=== PATIENT | female | born 1945 | race Caucasian/White ===

== ENCOUNTER 2016-09-27 13:31 | Emergency (ER) | payer OTHER ==
[~2016-09-27] VITALS: Ht 157.5 cm; Wt 45.4 kg
[2016-09-27 13:35] VITALS: BP 110/74
[2016-09-27] MEDS ORDERED: ALBUTEROL SULFATE/IPRATROPIU 3 ML SOL IH ONE (13:45)
[2016-09-27] MEDS ORDERED: predniSONE 20 MG TAB PO ONE (13:45)
[2016-09-27] MEDS ORDERED: ALBUTEROL 0.083% 2.5 MG/3 ML NEBU INH ONE (13:45)
[2016-09-27 14:14] LABS: HEMATOCRIT 43.8 % (36-48); MEAN CORPUSCULAR HGB CONC 33 g/dL (33-37); PLATELET COUNT (AUTO) 191 K/uL (140-450); RED CELL DISTRIBUTION WIDTH 13.2 % (11.6-13.7)
[2016-09-27 14:18] LABS: HEMOGLOBIN 14.4 g/dL (12.0-16.0); MEAN CORPUSCULAR HEMOGLOBIN 28 pg (27-31); MEAN CORPUSCULAR VOLUME 85 fL (80-94); RED BLOOD CELL COUNT(AUTO) 5.17 MIL/uL (4.20-5.40); WHITE BLOOD COUNT (AUTO) 5.2 K/uL (4.8-10.8)
[2016-09-27 14:24] LABS: ANION GAP 14.6 (8-16); CALCIUM 9.4 mg/dL (8.5-10.1); CARBON DIOXIDE 24.6 mmol/L (21-32); CHLORIDE 108 mmol/L (98-107); CREATININE 0.7 mg/dL (0.6-1.3); GLUCOSE 113 mg/dL (74-106); POTASSIUM 4.2 mmol/L (3.5-5.1); SODIUM SERUM 143 mmol/L (136-145); UREA NITROGEN, BLOOD 21 mg/dL (7-18)
[2016-09-27 14:30] LABS: ALANINE AMINOTRANSFERASE 30 U/L (14-59); ALBUMIN 3.6 g/dL (3.4-5.0); ALKALINE PHOSPHATASE 114 U/L (46-116); ASPARTATE AMINOTRANSFERASE 17 U/L (15-37); TOTAL BILIRUBIN 0.3 mg/dL (0.0-1.0); TOTAL PROTEIN, SERUM 6.3 g/dL (6.4-8.2)
[2016-09-27 14:36] LABS: BAND % (MANUAL) 6 % (0-8); LYMPHOCYTES % (MANUAL) 21 % (20-46); MONOCYTES % (MANUAL) 11 % (5-12); NEUTROPHILS % (MANUAL) 62 (43-65); PLATELET ESTIMATE ADEQUATE
[2016-09-27 14:37] LABS: PARTIAL THROMBOPLASTIN TIME 24.3 secs (22-35.6); PROTHROMBIN TIME 10.5 secs (10.8-13.4)
[2016-09-27] MEDS ORDERED: LORazepam 1 MG TAB PO ONE (14:40)
[2016-09-27 15:49] VITALS: BP 114/75
== END 2016-09-27 15:49 | disposition home or self-care (01) ==
LOC: MED 13:31
DX: F41.9 Anxiety disorder, unspecified (principal); R06.02 Shortness of breath; Z85.3 Personal history of malignant neoplasm of breast; Z95.0 Presence of cardiac pacemaker
CPT/HCPCS: 36415; 71010; 80053; 83880; 84484; 85025; 85610; 85730; 93005; 94640; 99285; J7512; J7613; J7620

== ENCOUNTER 2020-02-02 02:21 | Emergency (ER) | payer OTHER ==
[~2020-02-02] VITALS: Ht 162.6 cm; Wt 56.7 kg
--- NOTE | 2020-02-02 02:21 | NUR ---
PT CARRIED BY [facility]NELL TO BED 4
[2020-02-02 02:27] VITALS: BP 137/55
--- NOTE | 2020-02-02 02:27 | NUR ---
74 Y/O FEMALE BIBA C/O ACCIDENALT OVERDOSE OF HOME MEDICATIONS. PER EMS PT USUALLY TAKES 200 MG OF LAMOTRIGINE . PT ACCIDENTALLY TOOK 400MG TOTAL. PT ALSO TAKES TRAZODONE & rISPERIDONE. PER EMS PT DID NOT TAKE EXTRA OF THOSE MEDICATIONS. PT HAS DEMENTIA, A/O X 2. RR EVEN AND UNLABORED. SKIN PINK , WARM AND INTACT. PER EMS PT HAS NOT VOMITTED, ONLY OBSERVED DRY HEAVING. PT CONNECTED TO LEAD FORMER, PULSE OX AND BP CUFF. ERMD MADE AWARE OF PT STATUS. PMH: DEPRESSION, PACEMAKER, LIVER & KIDNEY CANCER, DEMENTIA NKA
--- NOTE | 2020-02-02 02:29 | NUR ---
BLOOD LABS COLLECTED AND HANDED TO SHYLA FINK.
[2020-02-02 02:40] LABS: BASOPHILS % (AUTO) 0.4 % (0.0-2.0); EOSINOPHILS % (AUTO) 0.4 % (0.0-4.0); HEMATOCRIT 38.3 % (36-48); HEMOGLOBIN 12.6 g/dL (12.0-16.0); LYMPHOCYTES # (AUTO) 0.8 K/uL (2.5-16.5); LYMPHOCYTES % (AUTO) 7.8 % (20.5-51.1); MEAN CORPUSCULAR HEMOGLOBIN 26 pg (27-31); MEAN CORPUSCULAR HGB CONC 33 g/dL (33-37); MEAN CORPUSCULAR VOLUME 79.3 fL (80-94); MONOCYTES # (AUTO) 0.9 K/uL (0.8-1.0); MONOCYTES % (AUTO) 9.4 % (1.7-9.3); NEUTROPHILS # (AUTO) 8.2 K/uL (1.8-7.7); PLATELET COUNT (AUTO) 288 K/uL (140-450); RED BLOOD CELL COUNT(AUTO) 4.83 MIL/uL (4.20-5.40); RED CELL DISTRIBUTION WIDTH 15.7 % (11.6-13.7)
--- NOTE | 2020-02-02 02:47 | NUR ---
LITO CRYSTAL SWAB COLLECTED AND WALKED TO LAB BY EMT.
--- NOTE | 2020-02-02 02:49 | NUR ---
XRAY AT BEDSIDE.
[2020-02-02 03:01] LABS: ALBUMIN 3.6 g/dL (3.4-5.0); ANION GAP 16.3 (8-16); ASPARTATE AMINOTRANSFERASE 26 U/L (15-37); CARBON DIOXIDE 22.8 mmol/L (21-32); CHLORIDE 105 mmol/L (98-107); CREATININE 0.7 mg/dL (0.6-1.3); GLUCOSE 123 mg/dL (74-106); POTASSIUM 4.1 mmol/L (3.5-5.1); SODIUM SERUM 140 mmol/L (136-145); TOTAL BILIRUBIN 0.3 mg/dL (0.0-1.0); UREA NITROGEN, BLOOD 19 mg/dL (7-18)
--- NOTE | 2020-02-02 03:07 | NUR ---
SPOKE W/ BRIGIDA FROM POISON CONTROL - PER BRIGIDA 4-6 HR OBSERVATION AT THIS TIME. KEEP PT ON MANAGER REGISTRATION AND UPDATE Q2H VSS. TX: SUPPORTIVE CARE OF S/S. PER BRIGIDA , PT USUALLY TOLERATE WELL ACCIDENTAL DOUBLE DOSE OF LAMOTRIGINE. PT NORMAL S/S ARE DIZZINESS AND NAUSEA. YOLANDA KELLER MADE AWARE OF POISON CONTROLS RECOMMENDATIONS.
[2020-02-02] MEDS ORDERED: ONDANSETRON 4 MG/2 ML VIAL IVP ONE ×2 (03:15→03:25)
[2020-02-02] MEDS ORDERED: ONDANSETRON 4 MG/2 ML VIAL ONE (03:23)
--- NOTE | 2020-02-02 03:30 | NUR ---
# 16 FR Urinary catheter inserted utilizing sterile technique. Immediate return of 200 ml YELLOW urine noted. Urine sample collected and sent to lab. Pt tolerated procedure WELL.
[2020-02-02 03:32] LABS: ACETAMINOPHEN < 0.5 ug/ml (10-30); SALICYLATE < 2.8 mg/dL (2.8-20.0)
--- NOTE | 2020-02-02 03:37 | NUR ---
URINE SAMPLE COLLECTED AND WALKED TO LAB
[2020-02-02 04:25] LABS: APPEARANCE,URINE CLEAR (CLEAR); BILIRUBIN,URINE NEGATIVE (NEGATIVE); BLOOD, URINE NEGATIVE (NEGATIVE); COLOR,URINE YELLOW (YELLOW); LEUKOCYTE ESTERASE ,URINE NEGATIVE (NEGATIVE); NITRITE, URINE NEGATIVE (NEGATIVE); UGLUCOSE NEGATIVE (NEGATIVE)
[2020-02-02 04:30] LABS: BARBITURATE, URINE NEGATIVE ng/ml (NEG <=200); BENZODIAZEPINE, URINE NEGATIVE ng/mL (NEG <=200); CANNABINOID, URINE NEGATIVE ng/mL (NEG <=50); COCAINE, URINE NEGATIVE ng/mL (NEG <=300); OPIATE, URINE NEGATIVE ng/mL (NEG <=2000); PHENCYCLIDINE SCREEN,URINE NEGATIVE ng/mL (NEG <=25)
--- NOTE | 2020-02-02 04:34 | NUR ---
PT RESTING IN BED, LOCKED AND IN LOWEST POSITION, HOB ELEVATED, SIDE RAIL X2 FOR PT SAFETY. VISIBLE RISE AND FALL OF CHEST. RR EVEN AND UNLABORED. VSS. NO ACUTE DISTRESS NOTED.
[2020-02-02] MEDS ORDERED: NACL 0.9% 500 ML IV ONE ×2 (04:40→04:50)
--- NOTE | 2020-02-02 08:41 | NUR ---
PT'S SON CALLED AND WILL BE ARRIVED SHORTLY TO TRANSPORT PATIENT BACK HOME.
[2020-02-02 09:22] VITALS: BP 115/50
--- NOTE | 2020-02-02 09:22 | NUR ---
Patient discharged with v/s stable. Written and verbal after care instructions given and explained. Patient verbalized understanding. Patient w/c assisted to car. Son arrived to transport patient home. All questions addressed prior to discharge. Advised to follow up with PMD.
== END 2020-02-02 09:22 | disposition home or self-care (01) ==
LOC: MED 02:21
DX: T42.6X1A Poisoning by other antiepileptic and sedative-hypnotic drugs, accidental (unintentional), initial encounter (principal); Y92.098 Other place in other non-institutional residence as the place of occurrence of the external cause
CPT/HCPCS: 36415; 71045; 80053; 80305; 81003; 82550; 84484; 85025; 87426; 93005; 96361; 96374; 99285; G0480; G0482; J2405; J7030; 96360